=== PATIENT | female | born 1975 | race African-American/Black ===

== ENCOUNTER 2020-05-21 11:10 | Emergency (ER) | payer OTHER, MEDICAID ==
[~2020-05-21] VITALS: Ht 160 cm; Wt 57.6 kg
[2020-05-21 11:14] VITALS: BP 147/97
[2020-05-21] MEDS ORDERED: NACL 0.9% 1,000 ML IV ONE (11:52)
[2020-05-21] MEDS ORDERED: ONDANSETRON 4 MG/2 ML VIAL IVP ONE ×2 (11:55→13:20)
[2020-05-21] MEDS ORDERED: diphenhydrAMINE 50 MG/ML VIAL IVP ONE (11:55)
[2020-05-21] MEDS ORDERED: MORPHINE SULFATE 4 MG/ML SYR IVP ONE (11:55)
[2020-05-21 12:14] LABS: BASOPHILS # (AUTO) 0.1 K/uL (0.00-0.22); EOSINOPHILS # (AUTO) 0.2 K/uL (0-0.4); EOSINOPHILS % (AUTO) 3.2 % (0.0-4.0); HEMATOCRIT 38.9 % (36-48); LYMPHOCYTES # (AUTO) 2.8 K/uL (2.5-16.5); LYMPHOCYTES % (AUTO) 46.5 % (20.5-51.1); MEAN CORPUSCULAR HEMOGLOBIN 33 pg (27-31); MEAN CORPUSCULAR HGB CONC 34 g/dL (33-37); MEAN CORPUSCULAR VOLUME 98.7 fL (80-94); MONOCYTES # (AUTO) 0.5 K/uL (0.8-1.0); MONOCYTES % (AUTO) 8.6 % (1.7-9.3); NEUTROPHILS # (AUTO) 2.4 K/uL (1.8-7.7); NEUTROPHILS % (AUTO) 39.7 % (42.2-75.2); PLATELET COUNT (AUTO) 309 K/uL (140-450); RED BLOOD CELL COUNT(AUTO) 3.94 MIL/uL (4.20-5.40); RED CELL DISTRIBUTION WIDTH 14.3 % (11.6-13.7)
[2020-05-21 12:29] LABS: ALBUMIN 3.8 g/dL (3.4-5.0); ANION GAP 10.8 (8-16); CARBON DIOXIDE 28.9 mmol/L (21-32); CREATININE 0.9 mg/dL (0.6-1.3); POTASSIUM 3.7 mmol/L (3.5-5.1); TOTAL BILIRUBIN 0.2 mg/dL (0.0-1.0)
[2020-05-21] MEDS ORDERED: ONDANSETRON 4 MG/2 ML VIAL ONE (13:21)
[2020-05-21 13:31] VITALS: BP 147/97
== END 2020-05-21 13:32 | disposition home or self-care (01) ==
LOC: MED 11:10
DX: R10.9 Unspecified abdominal pain (principal); Z88.2 Allergy status to sulfonamides; Z88.6 Allergy status to analgesic agent; Z98.890 Other specified postprocedural states
CPT/HCPCS: 36415; 80053; 81002; 81025; 83690; 85025; 96361; 96374; 96375; 96376; 99284; J1200; J2270; J2405; J7030